=== PATIENT | male | born 1965 | race Caucasian/White ===

== ENCOUNTER → 2021-07-03 16:07 | Outpatient (CLI) | payer OTHER, SELFPAY | PROVIDERS: PCP Family Medicine; Visit Provider Nurse Practitioner | DX: Z20.822 Contact with and (suspected) exposure to COVID-19 (principal) | CPT/HCPCS: C9803; U0003; U0005 ==

== ENCOUNTER → 2021-07-07 14:03 | Outpatient (CLI) | payer OTHER, SELFPAY | PROVIDERS: PCP Family Medicine; Visit Provider Nurse Practitioner Family | DX: U07.1 COVID-19 (principal) | CPT/HCPCS: C9803; U0003; U0005 ==